=== PATIENT | female | born 1950 | race Caucasian/White ===

== ENCOUNTER 2020-11-11 06:00 | Outpatient (RCR) | payer MEDICARE, SELFPAY | END 2020-11-15 23:59 | disposition home or self-care (01) | LOC: TPT 06:00 | PROVIDERS: PCP Family Medicine; Referring Provider Family Medicine; Visit Provider Family Medicine | DX: M25.511 Pain in right shoulder (principal); M89.49 Other hypertrophic osteoarthropathy, multiple sites; M54.2 Cervicalgia; M25.512 Pain in left shoulder | CPT/HCPCS: 97110; 97162 ==

== ENCOUNTER 2020-11-16 06:00 | Outpatient (RCR) | payer MEDICARE, SELFPAY | END 2020-12-15 23:59 | disposition home or self-care (01) | LOC: TPT 06:00 | PROVIDERS: PCP Family Medicine; Referring Provider Family Medicine; Visit Provider Family Medicine | DX: M25.511 Pain in right shoulder (principal); M89.49 Other hypertrophic osteoarthropathy, multiple sites; M54.2 Cervicalgia; M25.512 Pain in left shoulder | CPT/HCPCS: 97110; 97140 ==

== ENCOUNTER 2020-12-16 06:00 | Outpatient (RCR) | payer MEDICARE, SELFPAY | END 2021-01-15 23:59 | disposition home or self-care (01) | LOC: TPT 06:00 | PROVIDERS: PCP Family Medicine; Referring Provider Family Medicine; Visit Provider Family Medicine | DX: M25.511 Pain in right shoulder (principal); M89.49 Other hypertrophic osteoarthropathy, multiple sites; M54.2 Cervicalgia; M25.512 Pain in left shoulder | CPT/HCPCS: 97110 ==

== ENCOUNTER 2022-11-15 23:11 | Inpatient (IN) | payer MEDICARE, SELFPAY ==
--- NOTE | 2022-11-15 23:12 | W.ED.SOB ---
HPI - SOB/Dyspnea General: Chief Complaint: Shortness of Breath/Dyspnea Stated Complaint: RESP DISTRESS Time Seen by Provider: 11/15/22 23:11 History of Present Illness: HPI Narrative: 72-year-old lady with history of COPD and chronic hypoxic respiratory failure presenting to the emergency department for shortness of breath and hypoxemic. She notes worsening symptoms over the past few days with increased weight gain. She does note cough which is mild. She denies other infectious symptoms. EMS found her wandering around her house not on oxygen and she was hypoxemia with central and peripheral cyanosis and confusion. She was placed on CPAP with some improvement in mental state. Albuterol treatment x2. Currently alert and oriented. No other specific changes in health, exacerbating, or alleviating factors identified. Onset (ago): day(s) Severity: severe Known history of: COPD Review of Systems General: Reports: 10 or more systems reviewed and unremarkable except in HPI and below PFSH ED PFSH: Medical History COPD (chronic obstructive pulmonary disease) Physical Exam Const: COMMON NORMALS: alert GENERAL APPEARANCE: cooperative, well developed and ill appearing HENMT: COMMON NORMALS: normocephalic and atraumatic HEAD & SCALP: normocephalic and atraumatic THROAT: posterior oropharynx normal Eye: COMMON NORMALS: conjunctivae normal CONJUNCTIVA: Yes conjunctivae normal SCLERA: sclerae normal Neck/C-Spine: COMMON NORMALS: supple GENERAL: Yes trachea midline Resp: EFFORT & INSPECTION: Yes tachypneic and Yes respiratory distress AUSCULTATION: rhonchi, wheezes and diminished lung sounds Cardio: COMMON NORMALS: regular rate and regular rhythm RATE: regular rate RHYTHM: regular rhythm GI: COMMON NORMALS: Soft to palpation PALPATION: Yes Soft to palpation and No Tenderness to palpation present (GI) Extremity: GENERAL: Yes normal exam except as noted and Yes edema Neuro: COMMON NORMALS: moves all extremities SENSORIUM/ORIENTATION: Yes alert and No Orientation impaired Psych: COMMON NORMALS: mental status grossly normal and Normal thought process present THOUGHT PROCESS: Normal thought process present Course Vital Signs: Vital signs: Vital Signs Temperature 98.3 F 11/17/22 08:00 Pulse Rate 100 11/17/22 15:40 Respiratory Rate 18 11/17/22 15:30 Blood Pressure 139/87 11/17/22 16:00 Pulse Oximetry 90 11/17/22 15:30 Oxygen Delivery Me thod High Flow Nasal C annula 11/17/22 15:30 Oxygen Flow Rate 8 11/17/22 15:30 Fraction of Inspir ed Oxygen 40 11/17/22 00:00 MDM - SOB/Dyspnea Medical Decision Making 72-year-old lady presenting with respiratory distress. Exam as above. EKG notable for sinus tachycardia. Right axis deviation. Normal intervals. No STEMI. Labs with no leukocytosis, normal hemoglobin and platelet count. Metabolic panel with evidence of hypercapnic respiratory failure. Hyponatremia and hypochloremia noted on metabolic panel with preserved renal function. Negative range 2-hour delta troponin proBNP is elevated. Viral panel pending. Chest x-ray with no lobar consolidation or pneumothorax. Patient treated with continued RT treatments, steroids, antibiotic for COPD exacerbation. The results of ED evaluation were discussed with the patient including plan for admission due to requirement for level of care not available if discharged to prevent significant worsening/deterioration. Patient agreeable with plan. Discussed with hospitalist service who was agreeable to admit patient. Medical Records I reviewed the patient's medical records. Lab Data I reviewed the patient's lab results. 11/17/22 03:57 11/17/22 03:57 Labs/Radiology: Radiology Impressions Chest X-Ray 11/15/22 23:18 IMPRESSION: 1. Emphysematous changes. 2. Trace bilateral pleural effusions. Chest CTA 11/16/22 00:32 IMPRESSION: 1. Lingular lobe pulmonary artery demonstrates decreased enhancement with contrast seen distally, series 11, image 201, finding may be artifactual in nature, a nonocclusive pulmonary embolus is also a consideration but felt less likely. Negative for right heart strain given on RV to LV ratio of approximately 0.9. 2. Small bilateral effusions. 3. Bilateral dependent atelectasis versus infiltrate. 4. Cardiomegaly. 5. Coronary artery atherosclerotic calcifications. 6. Emphysematous changes. 7. Bilateral dependent atelectasis versus infiltrate. COMMENTS: In the absence of a history or active diagnosis of lung cancer, it is recommended that this patient with emphysema be evaluated for enrollment in a low dose CT lung cancer screening program. Laboratory Results WBC 6.9 10^3/uL (4.0-10.0) 11/15/22 23:15 RBC 4.97 10^6/uL (4.1-5.3) 11/15/22 23:15 Hgb 14.5 g/dL (11.5-15.3) 11/15/22 23:15 Hct 47.0 % (37.0-47.0) 11/15/22 23:15 MCV 94.6 fl (81-99) 11/15/22 23:15 MCH 29.2 pg (28.0-34.0) 11/15/22 23:15 MCHC 30.9 g/dL (30.0-36.0) 11/15/22 23:15 RDW 16.1 % (12.1-15.1) H 11/15/22 23:15 Plt Count 174 10^3/cmm (130-400) 11/15/22 23:15 MPV 9.9 fL (7.4-10.4) 11/15/22 23:15 Neut % (Auto) 76.1 % 11/15/22 23:15 Lymph % (Auto) 6.3 % 11/15/22 23:15 [place] % (Auto) 17.2 % 11/15/22 23:15 Eos % (Auto) 0.0 % 11/15/22 23:15 Baso % (Auto) 0.3 % 11/15/22 23:15 Neut # (Auto) 5.22 10^3/uL (1.8-7.7) 11/15/22 23:15 Lymph # (Auto) 0.4 10^3/uL (0.8-4.8) L 11/15/22 23:15 [place] # (Auto) 1.2 10^3/uL (0.2-0.9) H 11/15/22 23:15 Eos # (Auto) 0.0 10^3/uL (0.0-0.8) 11/15/22 23:15 Baso # (Auto) 0.0 10^3/uL (0.0-0.1) 11/15/22 23:15 Nucleated RBC % (auto) 0 % 11/15/22 23:15 Nucleated RBCs # 0.0 /100WBC 11/15/22 23:15 D-Dimer 2.64 ug/mIFEU (0-0.59) H 11/15/22 23:15 Specimen Type Arterial 11/15/22 23:18 Sample Site Radial, right 11/15/22 23:18 ABG pH 7.20 (7.35-7.45) L 11/15/22 23:18 ABG pCO2 89.8 mmHg (35-45) H* 11/15/22 23:18 ABG pO2 49.2 mmHg (80.0-100.0) L 11/15/22 23:18 ABG HCO3 35.0 mmol/L (22-26) H 11/15/22 23:18 ABG Base Excess 3.5 mmol/L (-2.0-2.0) H 11/15/22 23:18 Pedro Test Pos 11/15/22 23:18 Hematocrit 45.4 % (37-47) 11/15/22 23:18 Hgb O2 Saturation 74.6 % (95-100) L 11/15/22 23:18 Carboxyhemoglobin 4.6 %THgb (0.4-20.1) 11/15/22 23:18 Methemoglobin 0.2 % (0.4-1.5) L 11/15/22 23:18 Total Hemoglobin 14.8 g/dL (12-16) 11/15/22 23:18 O2 Delivery Device Nc 11/15/22 23:18 O2 Liters/Min 5.0 % 11/15/22 23:18 Retail Equipment Associate ID [email or web address] 11/15/22 23:18 Sodium 128 mmol/L (136-145) L 11/15/22 23:15 Potassium 5.1 mmol/L (3.5-5.1) 11/15/22 23:15 Chloride 86 mmol/L (98-107) L 11/15/22 23:15 Carbon Dioxide 32 mmol/L (22-29) H 11/15/22 23:15 Anion Gap 15.1 (5-19) 11/15/22 23:15 BUN 29 mg/dL (8-23) H 11/15/22 23:15 Creatinine 0.5 mg/dL (0.5-0.9) 11/15/22 23:15 GFR Calculation Not Reportable 11/15/22 23:15 Glucose 188 mg/dL (65-115) H 11/15/22 23:15 POC Glucose 152 mg/dL (70-110) H 11/15/22 23:54 Calculated Osmolality 277 mOsm/kg (285-295) L 11/15/22 23:15 Lactic Acid 1.4 mmol/L (0.5-2.2) 11/15/22 23:34 Calcium 8.9 mg/dL (8.5-10.5) 11/15/22 23:15 Total Bilirubin 0.3 mg/dL (0.15-1.2) 11/15/22 23:15 AST 32 U/L (0-32) 11/15/22 23:15 ALT 41 U/L (0-33) H 11/15/22 23:15 Alkaline Phosphatase 116 U/L (35-105) H 11/15/22 23:15 Troponin T Baseline 17 ng/L (0-10) H 11/15/22 23:15 NT-Pro-B Natriuret Pep 3935 pg/mL (0-125) H 11/15/22 23:15 Total Protein 6.5 g/dL (6.6-8.7) L 11/15/22 23:15 Albumin 3.4 g/dL (3.5-5.2) L 11/15/22 23:15 Globulin 3.1 g/dL (1.3-4.6) 11/15/22 23:15 Nasal Influ A H1 2008 PCR Not detected (NOT DETECT) 11/15/22 23:50 Adenovirus (PCR) Not detected (NOT DETECT) 11/15/22 23:50 C. pneumoniae DNA (PCR) Not detected (NOT DETECT) 11/15/22 23:50 Coronavirus 229E (PCR) Not detected (NOT DETECT) 11/15/22 23:50 Human Metapneumovir PCR Not detected (NOT DETECT) 11/15/22 23:50 Influenza A (H1) PCR Not detected (NOT DETECT) 11/15/22 23:50 Influenza A (H3) PCR Not detected (NOT DETECT) 11/15/22 23:50 Influenza Type A (PCR) Not detected (NOT DETECT) 11/15/22 23:50 Influenza Type B (PCR) Not detected (NOT DETECT) 11/15/22 23:50 M. pneumoniae (PCR) Not detected (NOT DETECT) 11/15/22 23:50 Parainfluenza 1 (PCR) Not detected (NOT DETECT) 11/15/22 23:50 Parainfluenza 2 (PCR) Not detected (NOT DETECT) 11/15/22 23:50 Parainfluenza 3 (PCR) Not detected (NOT DETECT) 11/15/22 23:50 Parainfluenza 4 (PCR) Not detected (NOT DETECT) 11/15/22 23:50 RSV Type A (PCR) Not detected (NOT DETECT) 11/15/22 23:50 RSV Type B (PCR) Not detected (NOT DETECT) 11/15/22 23:50 Entero/Rhino (PCR) Not detected (NOT DETECT) 11/15/22 23:50 SARS-CoV-2 (PCR) Not detected (NOT DETECT) 11/15/22 23:50 Critical Care Time Critical Care Time: Critical Care Time: Yes Total Critical Care Time: 45 Attestation: Due to a high probability of clinically significant, possibly life threatening deterioration, the patient required my highest level of attention and preparedness to intervene emergently and I personally spent this critical care time directly and personally managing the patient. This critical care time included obtaining a history; examining the patient; pulse oximetry; ordering and review of laboratory and imaging studies; arranging urgent treatment with development of a management plan; evaluation of patient's response to treatment; frequent reassessment; and, discussions with other providers as applicable. It was exclusive of separately billable procedures. Primary system involved is respiratory Discharge Plan Discharge Patient Disposition: Admitted As Inpatient Admit Provider: Tasha Gamboa Clinical Impression: Acute exacerbation of chronic obstructive airways disease, Respiratory failure with hypoxia and hypercapnia Condition: Serious Coding Level of Care Code ED [employer] Supervisor for Mikey Quinteros
[2022-11-15 23:13] VITALS: BMI 18.2
--- NOTE | 2022-11-15 23:16 | ECG_ITS ---
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 Measurements Intervals [place] Rate: 100 P: 84 SD: 166 QRS: 102 QRSD: 83 T: 69 QT: 305 QTc: 394 Interpretive Statements SINUS TACHYCARDIA WITH OCCASIONAL SUPRAVENTRICULAR PREMATURE COMPLEXES RIGHT AXIS DEVIATION [QRS AXIS > 100] MINIMAL ST DEPRESSION [0.025+ mV ST DEPRESSION] No previous ECG available for comparison Electronically Signed On 11-16-2022 17:37:25 CDT by Mode Ross M.D. [email or web address] health centerProteocyte Diagnosticsselect medical specialty hospital [facility] [email or web address].Relayr/store/NU/[id number] f
[2022-11-15 23:17] VITALS: BP 119/88; PULSE 95; RESP 25; TEMP 36.6; O2SAT 94
--- NOTE | 2022-11-15 23:18 | XRR_ITS ---
PROCEDURE INFORMATION: Exam: XR Chest Exam date and time: 11/15/2022 11:23 PM Age: 72 years old Clinical indication: Other: Resp. Distress; Additional info: Resp distress TECHNIQUE: Imaging protocol: Radiologic exam of the chest. Views: 1 view. COMPARISON: No relevant prior studies available. FINDINGS: Lungs: Emphysematous changes. Pleural spaces: Trace bilateral pleural effusions. Heart/Mediastinum: Unremarkable. No cardiomegaly. Bones/joints: Unremarkable. XR/XR chest 1V portable [id number] IMPRESSION: 1. Emphysematous changes. 2. Trace bilateral pleural effusions.
[2022-11-15 23:28] LABS: Basophils % 0.3 %; Hemoglobin 14.5 g/dL (11.5-15.3); Lymphocytes # 0.4 10^3/uL (0.8-4.8); Lymphocytes % 6.3 %; Mean Corpuscular HGB Conc 30.9 g/dL (30.0-36.0); Mean Corpuscular Hemoglobin 29.2 pg (28.0-34.0); Mean Corpuscular Volume 94.6 fl (81-99); Mean Platelet Volume 9.9 fL (7.4-10.4); Monocytes # 1.2 10^3/uL (0.2-0.9); Monocytes % 17.2 %; Neutrophils # 5.22 10^3/uL (1.8-7.7); Neutrophils % 76.1 %; Nucleated Red Blood Cells % 0 %; Platelet Count 174 10^3/cmm (130-400); Red Blood Count 4.97 10^6/uL (4.1-5.3); Red Cell Distribution Width 16.1 % (12.1-15.1); White Blood Count 6.9 10^3/uL (4.0-10.0)
[2022-11-15 23:39] LABS: Arterial Blood Gas Hematocrit 45.4 % (37-47); Base Excess ABG 3.5 mmol/L (-2.0-2.0); Blood Gas Allen Test Pos; Blood Gas Sample Site Radial, right; Blood Gas Sample Type Arterial; Carboxyhemoglobin 4.6 %THgb (0.4-20.1); HGB O2 Sat 74.6 % (95-100); Methemoglobin 0.2 % (0.4-1.5); Oxygen Device NC; PO2 ABG 49.2 mmHg (80.0-100.0); Total Hemoglobin 14.8 g/dL (12-16)
[2022-11-15 23:40] LABS: ABG PCO2 89.8 mmHg (35-45)
[2022-11-15] MEDS: ipratropium-albuterol 3 mL Neb INHALATION (23:40)
[2022-11-15 23:43] LABS: Troponin(5th) Baseline 17 ng/L (0-10)
[2022-11-15] MEDS: dexamethasone 10 mg/mL INJ IVP (23:44)
[2022-11-15 23:48] VITALS: BP 134/108; PULSE 94; RESP 16; O2SAT 99
[2022-11-15 23:51] VITALS: PULSE 100; RESP 17; RESP 20; O2SAT 98; O2SAT 99
[2022-11-15 23:52] LABS: Alanine Aminotransferase 41 U/L (0-33); Albumin Level 3.4 g/dL (3.5-5.2); Alkaline Phosphatase 116 U/L (35-105); Anion Gap 15.1 (5-19); Aspartate Amino Transferase 32 U/L (0-32); Blood Urea Nitrogen 29 mg/dL (8-23); Calcium 8.9 mg/dL (8.5-10.5); Carbon Dioxide 32 mmol/L (22-29); Chloride 86 mmol/L (98-107); Globulin 3.1 g/dL (1.3-4.6); Glucose 188 mg/dL (65-115); NT Pro B Type Natriuretic Pept 3935 pg/mL (0-125); Osmolality Calculated 277 mOsm/kg (285-295); Potassium 5.1 mmol/L (3.5-5.1); Sodium 128 mmol/L (136-145); Total Bilirubin 0.3 mg/dL (0.15-1.2); Total Protein 6.5 g/dL (6.6-8.7)
[2022-11-15 23:55] LABS: Lactic Sepsis W/Reflex 1.4 mmol/L (0.5-2.2)
[2022-11-15 23:56] LABS: Glucose Point of Care 152 mg/dL (70-110)
[2022-11-16] VITALS (71 sets, daily range): BP systolic 91–137; BP diastolic 62–111; PULSE 88–122; RESP 14–42; TEMP 36.2–36.8; O2SAT 74–99; BMI 19.2
[2022-11-16] MEDS: doxycycline 100 MG in sodium chloride 0.9% (plus) 100 ML IV (00:28)
[2022-11-16 00:31] LABS: D Dimer 2.64 ug/mIFEU (0-0.59)
--- NOTE | 2022-11-16 00:32 | CTR_ITS ---
PROCEDURE INFORMATION: Exam: CTA Chest With Contrast Exam date and time: 11/16/2022 12:51 AM Age: 72 years old Clinical indication: Shortness of breath; Patient HX: SOB with hypoxia and tachycardia. On bipap. Wearing external heart monitor. ; Additional info: SOB, resp distress TECHNIQUE: Imaging protocol: Computed tomographic angiography of the chest with contrast. Exam focused on the arteries. 3D rendering (Not supervised by radiologist): MIP and/or 3D reconstructed images were created by the technologist. Radiation optimization: All CT scans at this facility use at least one of these dose optimization techniques: automated exposure control; mA and/or kV adjustment per patient size (includes targeted exams where dose is matched to clinical indication); or iterative reconstruction. Contrast material: OMNI 350; Contrast volume: 60 ml; Contrast route: INTRAVENOUS (IV); REPORTING DATA: Count of CT and Cardiac NM exams in prior 12 months: This patient has received 0 known CTs and 0 known cardiac nuclear medicine studies in the 12 months prior to the current study. COMPARISON: CR (CHEST, ) 11/15/2022 11:23 PM RADIATION DOSE METRICS: Total DLP (mGy-cm): 194.1 FINDINGS: Pulmonary arteries: See Lungs finding. Aorta: Unremarkable. No aortic aneurysm. No aortic dissection. Lungs: Lingular lobe pulmonary artery demonstrates decreased enhancement with contrast seen distally, series 11, image 201, finding may be artifactual in nature, a nonocclusive pulmonary embolus is also a consideration but felt less likely. Negative for right heart strain given on RV to LV ratio of approximately 0.9. Bilateral dependent atelectasis versus infiltrate. Emphysematous changes. Bilateral dependent atelectasis versus infiltrate. Pleural spaces: Unremarkable. No pneumothorax. No pleural effusion. Heart: Cardiomegaly. Coronary arteries: Coronary artery atherosclerotic calcifications. Lymph nodes: Unremarkable. No enlarged lymph nodes. Bones/joints: Unremarkable. No acute fracture. Soft tissues: Unremarkable. Other findings: Small bilateral effusions. CT/CT angio chest PE protcl [id number] IMPRESSION: 1. Lingular lobe pulmonary artery demonstrates decreased enhancement with contrast seen distally, series 11, image 201, finding may be artifactual in nature, a nonocclusive pulmonary embolus is also a consideration but felt less likely. Negative for right heart strain given on RV to LV ratio of approximately 0.9. 2. Small bilateral effusions. 3. Bilateral dependent atelectasis versus infiltrate. 4. Cardiomegaly. 5. Coronary artery atherosclerotic calcifications. 6. Emphysematous changes. 7. Bilateral dependent atelectasis versus infiltrate. COMMENTS: In the absence of a history or active diagnosis of lung cancer, it is recommended that this patient with emphysema be evaluated for enrollment in a low dose CT lung cancer screening program.
[2022-11-16] MEDS: iohexol 350 mg/mL 500 mL Btl (per mL) IV (01:22)
[2022-11-16 01:32] LABS: Adenovirus Not Detected (NOT DETECT); Chlamydia Pneumoniae Not Detected (NOT DETECT); Coronavirus 229E,HKU1,NL63,OC4 Not Detected (NOT DETECT); Human Metapneumovirus Not Detected (NOT DETECT); Human Rhinovirus/Enterovirus Not Detected (NOT DETECT); Influenza A Not Detected (NOT DETECT); Influenza A H1 Not Detected (NOT DETECT); Influenza A H1-2009 Not Detected (NOT DETECT); Influenza A H3 Not Detected (NOT DETECT); Influenza B Not Detected (NOT DETECT); Mycoplasma Pneumoniae Not Detected (NOT DETECT); Parainfluenza Virus Type 1 Not Detected (NOT DETECT); Parainfluenza Virus Type 2 Not Detected (NOT DETECT); Parainfluenza Virus Type 3 Not Detected (NOT DETECT); Parainfluenza Virus Type 4 Not Detected (NOT DETECT); Respiratory Syncytial Virus A Not Detected (NOT DETECT); Respiratory Syncytial Virus B Not Detected (NOT DETECT); SARS-COV-2 Not Detected (NOT DETECT)
--- NOTE | 2022-11-16 01:38 | ECG_ITS ---
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 Measurements Intervals [place] Rate: 92 P: 86 WI: 170 QRS: 102 QRSD: 85 T: 73 QT: 323 QTc: 400 Interpretive Statements SINUS RHYTHM POSSIBLE RIGHT VENTRICULAR HYPERTROPHY [SOME/ALL OF: PROMINENT R IN V1, LATE TRANSITION, RAD, NICHO, SSS] Compared to ECG 11/15/2022 23:16:48 Sinus tachycardia no longer present Right-axis deviation no longer present ST (T wave) deviation no longer present Electronically Signed On 11-16-2022 17:38:53 CDT by Mode Ross M.D. [id number]
[2022-11-16 02:17] LABS: Troponin 5 2HR 14.88 ng/L (0-10)
[2022-11-16 02:19] LABS: Troponin 5 2HR Delta -2.12 ABS# (0-10)
--- NOTE | 2022-11-16 02:54 | USCV_ITS ---
Alondra Melgar Age: 72 Gender: F : 1950 Exam Date: 11/16/2022 03:38 Ordering Phys: Tasha Gamboa MD Technologist: SURYA [place] [facility] [place]: COPD, hypoxia 92% on BIPAP in ICU-5. evaluate for right heart strain. BP: 110 / 70 HR: 100 Rhythm: Sinus Technical Quality: Adequate MEASUREMENTS (Male / Female) Normal Values 2D ECHO LV Diastolic Diameter PLAX 3.4 cm 4.2 - 5.9 / 3.9 - 5.3 cm LV Systolic Diameter PLAX 2.4 cm IVS Diastolic Thickness 1.3 cm 0.6 - 1.0 / 0.6 - 0.9 cm IVS Systolic Thickness 1.6 cm LVPW Diastolic Thickness 0.9 cm 0.6 - 1.0 / 0.6 - 0.9 cm LVPW Systolic Thickness 1.7 cm LVOT Diameter 1.8 cm LV Ejection Fraction 2D Teich 58.8 % LV Ejection Fraction MOD 2C 53.4 % LV Ejection Fraction 2C AL 54.1 % LA Diameter 2.2 cm LA Width 2.9 cm LA Height 4.5 cm RA Width 3.9 cm RA Height 4.7 cm Aorta at Sinotubular Diameter 2.6 cm IVC Diameter 3.1 cm M-MODE Aortic Annulus Diameter 2.5 cm LA Ao Ratio MM 0.8 MV E Point Septal Separation 0.5 cm DOPPLER AV Peak Velocity 127.0 cm/s LVOT Peak Velocity 83.0 cm/s AV Area Cont Eq vti 1.8 cm squared AV Area Cont Eq pk 1.8 cm squared MV Area PHT 3.1 cm squared Mitral E to A Ratio 1.7 MV E' Velocity 92.0 cm/s TR Peak Velocity 293.3 cm/s TR Peak Gradient 34.4 mmHg TV Peak E Velocity 43.0 cm/s Right Atrial Pressure 5.0 mmHg Pulmonary Artery Systolic Pressu 39.4 mmHg PV Peak Velocity 94.0 cm/s RV Acceleration Time 0.1 s RV Ejection Time 0.3 s RV AcT/ET 0.3 FINDINGS Left Ventricle Left ventricle is normal in size. LV systolic function is normal with EF of 55 to 60%. No regional wall motion abnormalities are seen. Right Ventricle Right ventricle is mildly dilated Right Atrium Normal in size Left Atrium Normal in size Mitral Valve Structurally normal mitral valve. No significant stenosis or regurgitation. Aortic Valve Structurally normal aortic valve. No significant stenosis or regurgitation. Tricuspid Valve Mild tricuspid regurgitation. RVSP is 45-50mmHg. This is consistent with moderate pulmonary hypertension. Pulmonic Valve Not well-visualized. Trace pulmonic regurgitation Pericardium Normal Aorta Normal in size IVC Dilated. CONCLUSIONS LV systolic function is normal with EF 55 to 60%. RV is mildly dilated. Mild tricuspid regurgitation. Moderate pulmonary hypertension Trace pulmonic regurgitation IVC is dilated No comparison studies are available Mode Ross MD (Electronically Signed) Final Date: 16 November 2022 18:28 S
--- NOTE | 2022-11-16 03:01 | P.HP_ITS ---
Providers/Chief Complaint Admitting Physician: Tasha Gamboa MD Primary Care Provider: Bailey Torre, Chief Complaint: RESP DISTRESS History of Present Illness Alondra Melgar is a 72 year old female with a past medical history of COPD, typically on home oxygen presenting with worsening shortness of breath. She was found by EMS to be saturating 50% on room air, was confused when first picked up by EMS. Patient is not able to give a full history given that she is currently on a BiPAP and dyspneic. However at the time of assessment she is alert awake oriented and able to answer all questions that are asked of her. She denies any recent fever chills. Complains of increasing cough expectoration and dyspnea over the last 4 to 5 days. Review of Systems General: Reports: 10 or more systems reviewed and unremarkable except in HPI and below Const: Denies: fever(s), chills or body aches Eyes: Denies: change in vision, blurry vision or photophobia ENMT: Reports: hoarseness; Denies: throat pain, enlarged tonsils, odynophagia or nasal congestion Card: Denies: chest pain, palpitations, irregular heart rhythm, edema, swelling of feet/ankles, lightheadedness, pre-syncope, dyspnea on exertion or orthopnea Resp: Denies: dyspnea, productive cough, non-productive cough, wheezing, stridor, pain on inspiration, change in phlegm color, hemoptysis or chest congestion GI: Denies: abdominal pain, nausea, vomiting, hematemesis, coffee ground emesis, dysphagia, heartburn, diarrhea, constipation, GI cramping, change in stool character, hematochezia or melena : Denies: flank pain, difficulty voiding, dysuria, urinary frequency, urinary urgency, urinary hesitancy or hematuria Musc: Denies: neck pain, back pain, extremity pain, joint swelling, joint warmth or deformity Neuro: Denies: headache(s), numbness in extremities, weakness in extremities, sensory changes, difficulty walking, frequent falls, dizziness, vertigo, behavioral changes, Slurred speech present or seizure-like activity Psych: Denies: anxiety, depression, suicidal ideation or homicidal ideation Endo: Denies: polyuria, polydipsia, tired all the time, cold intolerance or hot flashes Jose/Lymph: Denies: easy bruising or easy bleeding Medications/Allergies Allergies Allergy/AdvReac Type Severity Reaction Status Date / Time No Known Allergies Allergy Verified 11/16/22 00:29 PFSH Acute PFSH: Medical History COPD (chronic obstructive pulmonary disease) Vitals/I&O/Wt Last Vital Signs Temp 97.5 F L 11/16/22 01:15 Pulse 91 11/16/22 02:45 Resp 17 11/16/22 02:45 BP 110/70 11/16/22 02:45 Pulse Ox 94 11/16/22 02:45 O2 Del Method BiPAP 11/16/22 02:00 FiO2 40 11/16/22 02:00 11/15/22 11/15/22 11/16/22 14:59 22:59 06:59 Intake Total 100 / 100 Balance 100 / 100 Weight last 48 hrs Weight 53.977 kg Weight 51.256 kg Physical Exam Narrative: General: alert oriented x3, tachypneic, currently on a BiPAP HEENT: PERRLA, pupils bilaterally equal and reactive, pallors not present Chest: diffuse wheezing to auscultation bilaterally CVS: S1-S2 regular, no murmurs, no tachycardia, no gallops, no rubs Abdomen: Soft, nontender, no organomegaly, bowel sounds present Neuro: No focal deficits, no facial deformity, AO x3, power 5/5 in all limbs Data 11/15/22 23:15 11/16/22 01:47 Micro: Microbiology 11/15/22 23:34 Blood Culture - Preliminary Blood SPECIMEN COLLECTED 11/15/22 23:30 Blood Culture - Preliminary Blood SPECIMEN COLLECTED Other data: Radiology Impressions Chest X-Ray 11/15/22 23:18 IMPRESSION: 1. Emphysematous changes. 2. Trace bilateral pleural effusions. Chest CTA 11/16/22 00:32 IMPRESSION: 1. Lingular lobe pulmonary artery demonstrates decreased enhancement with contrast seen distally, series 11, image 201, finding may be artifactual in nature, a nonocclusive pulmonary embolus is also a consideration but felt less likely. Negative for right heart strain given on RV to LV ratio of approximately 0.9. 2. Small bilateral effusions. 3. Bilateral dependent atelectasis versus infiltrate. 4. Cardiomegaly. 5. Coronary artery atherosclerotic calcifications. 6. Emphysematous changes. 7. Bilateral dependent atelectasis versus infiltrate. COMMENTS: In the absence of a history or active diagnosis of lung cancer, it is recommended that this patient with emphysema be evaluated for enrollment in a low dose CT lung cancer screening program. Laboratory Results WBC 6.9 10^3/uL (4.0-10.0) 11/15/22 23:15 RBC 4.97 10^6/uL (4.1-5.3) 11/15/22 23:15 Hgb 14.5 g/dL (11.5-15.3) 11/15/22 23:15 Hct 47.0 % (37.0-47.0) 11/15/22 23:15 MCV 94.6 fl (81-99) 11/15/22 23:15 MCH 29.2 pg (28.0-34.0) 11/15/22 23:15 MCHC 30.9 g/dL (30.0-36.0) 11/15/22 23:15 RDW 16.1 % (12.1-15.1) H 11/15/22 23:15 Plt Count 174 10^3/cmm (130-400) 11/15/22 23:15 MPV 9.9 fL (7.4-10.4) 11/15/22 23:15 Neut % (Auto) 76.1 % 11/15/22 23:15 Lymph % (Auto) 6.3 % 11/15/22 23:15 Mcnairy % (Auto) 17.2 % 11/15/22 23:15 Eos % (Auto) 0.0 % 11/15/22 23:15 Baso % (Auto) 0.3 % 11/15/22 23:15 Neut # (Auto) 5.22 10^3/uL (1.8-7.7) 11/15/22 23:15 Lymph # (Auto) 0.4 10^3/uL (0.8-4.8) L 11/15/22 23:15 Mcnairy # (Auto) 1.2 10^3/uL (0.2-0.9) H 11/15/22 23:15 Eos # (Auto) 0.0 10^3/uL (0.0-0.8) 11/15/22 23:15 Baso # (Auto) 0.0 10^3/uL (0.0-0.1) 11/15/22 23:15 Nucleated RBC % (auto) 0 % 11/15/22 23:15 Nucleated RBCs # 0.0 /100WBC 11/15/22 23:15 D-Dimer 2.64 ug/mIFEU (0-0.59) H 11/15/22 23:15 Specimen Type Arterial 11/16/22 05:47 Sample Site Radial, right 11/16/22 05:47 ABG pH 7.19 (7.35-7.45) L 11/16/22 05:47 ABG pCO2 95.2 mmHg (35-45) H* 11/16/22 05:47 ABG pO2 70.3 mmHg (80.0-100.0) L 11/16/22 05:47 ABG HCO3 36.5 mmol/L (22-26) H 11/16/22 05:47 ABG Base Excess 4.6 mmol/L (-2.0-2.0) H 11/16/22 05:47 Pedro Test Pos 11/16/22 05:47 Hematocrit 44.5 % (37-47) 11/16/22 05:47 Hgb O2 Saturation 74.6 % (95-100) L 11/15/22 23:18 Carboxyhemoglobin 4.6 %THgb (0.4-20.1) 11/15/22 23:18 Methemoglobin 0.2 % (0.4-1.5) L 11/15/22 23:18 Total Hemoglobin 14.8 g/dL (12-16) 11/15/22 23:18 O2 Delivery Device Bipap 11/16/22 05:47 O2 Liters/Min 5.0 % 11/15/22 23:18 FiO2 40.0 % 11/16/22 05:47 [employer] ID Quentin 11/16/22 05:47 Sodium 129 mmol/L (136-145) L 11/16/22 01:47 Potassium 5.4 mmol/L (3.5-5.1) H 11/16/22 01:47 Chloride 89 mmol/L (98-107) L 11/16/22 01:47 Carbon Dioxide 33 mmol/L (22-29) H 11/16/22 01:47 Anion Gap 12.4 (5-19) 11/16/22 01:47 BUN 30 mg/dL (8-23) H 11/16/22 01:47 Creatinine 0.4 mg/dL (0.5-0.9) L 11/16/22 01:47 GFR Calculation Not Reportable 11/16/22 01:47 Glucose 132 mg/dL (65-115) H 11/16/22 01:47 POC Glucose 152 mg/dL (70-110) H 11/15/22 23:54 Calculated Osmolality 276 mOsm/kg (285-295) L 11/16/22 01:47 Lactic Acid 1.4 mmol/L (0.5-2.2) 11/15/22 23:34 Calcium 8.6 mg/dL (8.5-10.5) 11/16/22 01:47 Total Bilirubin 0.3 mg/dL (0.15-1.2) 11/16/22 01:47 AST 29 U/L (0-32) 11/16/22 01:47 ALT 38 U/L (0-33) H 11/16/22 01:47 Alkaline Phosphatase 111 U/L (35-105) H 11/16/22 01:47 Troponin T Baseline 17 ng/L (0-10) H 11/15/22 23:15 Troponin T 120 Minute 14.88 ng/L (0-10) H 11/16/22 01:47 Delta Troponin T -2.12 ABS# (0-10) L 11/16/22 01:47 Troponin T Hi Sens 6Hr 13.12 ng/L (0-10) H 11/16/22 05:00 Troponin T Hi Sens 6Hr Delta -3.88 ng/L (0-12) L 11/16/22 05:00 NT-Pro-B Natriuret Pep 3935 pg/mL (0-125) H 11/15/22 23:15 Total Protein 6.2 g/dL (6.6-8.7) L 11/16/22 01:47 Albumin 3.3 g/dL (3.5-5.2) L 11/16/22 01:47 Globulin 2.9 g/dL (1.3-4.6) 11/16/22 01:47 Procalcitonin 0.36 ng/mL (0-0.5) 11/16/22 01:47 Nasal Influ A H1 2009 PCR Not detected (NOT DETECT) 11/15/22 23:50 Adenovirus (PCR) Not detected (NOT DETECT) 11/15/22 23:50 C. pneumoniae DNA (PCR) Not detected (NOT DETECT) 11/15/22 23:50 Coronavirus 229E (PCR) Not detected (NOT DETECT) 11/15/22 23:50 Human Metapneumovir PCR Not detected (NOT DETECT) 11/15/22 23:50 Influenza A (H1) PCR Not detected (NOT DETECT) 11/15/22 23:50 Influenza A (H3) PCR Not detected (NOT DETECT) 11/15/22 23:50 Influenza Type A (PCR) Not detected (NOT DETECT) 11/15/22 23:50 Influenza Type B (PCR) Not detected (NOT DETECT) 11/15/22 23:50 M. pneumoniae (PCR) Not detected (NOT DETECT) 11/15/22 23:50 Parainfluenza 1 (PCR) Not detected (NOT DETECT) 11/15/22 23:50 Parainfluenza 2 (PCR) Not detected (NOT DETECT) 11/15/22 23:50 Parainfluenza 3 (PCR) Not detected (NOT DETECT) 11/15/22 23:50 Parainfluenza 4 (PCR) Not detected (NOT DETECT) 11/15/22 23:50 RSV Type A (PCR) Not detected (NOT DETECT) 11/15/22 23:50 RSV Type B (PCR) Not detected (NOT DETECT) 11/15/22 23:50 Entero/Rhino (PCR) Not detected (NOT DETECT) 11/15/22 23:50 SARS-CoV-2 (PCR) Not detected (NOT DETECT) 11/15/22 23:50 11/15/22 11/16/22 23:18 05:47 ABG pH 7.20 L 7.19 L ABG pCO2 89.8 H* 95.2 H* ABG pO2 49.2 L 70.3 L ABG HCO3 35.0 H 36.5 H allow ABG Base Excess 3.5 H 4.6 H A&P Assessment and plan (1) Acute exacerbation of chronic obstructive airways disease: (2) Respiratory failure with hypoxia and hypercapnia: (3) Pulmonary embolism: Plan 72-year-old lady with past medical history of COPD currently presenting with worsening dyspnea increased cough and expectoration over the past 4 to 5 days. ABG shows evidence of hypercapnic hypoxic respiratory failure. Patient is currently on a BiPAP. dexamethasone 6mg IVP daily duoneb q6h, budesonide q12h inhalation scheduled empiric levofloxacin 750 mg daily Repeat ABG at 4 AM CTA performed due to elevated D-dimer, lingular lobe pulmonary artery demonstrates decreased enhancement with contrast, findings thought to be artifact versus nonocclusive PE. Since PE cannot be conclusively excluded at this time, will start patient on anticoagulation with Lovenox 1 mg/kg every 12 hours. Check echocardiogram for signs of right heart strain Admit to ICU in view of hypoxic hypercapnic respiratory failure, currently needing BiPAP, high chance of clinical deterioration. CODE STATUS: DNR/DNI DVT prophylaxis: Lovenox will suffice Attestations Medical Necessity Statement*: > 2 midnight admission anticipated Coding Level of Care Code Critical Care >/= 30 minutes Diagnoses Acute exacerbation of chronic obstructive airways disease J44.1 Respiratory failure with hypoxia and hypercapnia J96.91; J96.92 Pulmonary embolism I26.99
[2022-11-16] MEDS: ipratropium-albuterol 3 mL Neb INHALATION ×4 (03:11→20:13)
[2022-11-16 03:18] LABS: Alanine Aminotransferase 38 U/L (0-33); Albumin Level 3.3 g/dL (3.5-5.2); Alkaline Phosphatase 111 U/L (35-105); Anion Gap 12.4 (5-19); Aspartate Amino Transferase 29 U/L (0-32); Blood Urea Nitrogen 30 mg/dL (8-23); Calcium 8.6 mg/dL (8.5-10.5); Carbon Dioxide 33 mmol/L (22-29); Chloride 89 mmol/L (98-107); Globulin 2.9 g/dL (1.3-4.6); Glucose 132 mg/dL (65-115); Osmolality Calculated 276 mOsm/kg (285-295); Potassium 5.4 mmol/L (3.5-5.1); Sodium 129 mmol/L (136-145); Total Bilirubin 0.3 mg/dL (0.15-1.2); Total Protein 6.2 g/dL (6.6-8.7)
[2022-11-16 03:25] LABS: Procalcitonin 0.36 ng/mL (0-0.5)
[2022-11-16] MEDS: enoxaparin 60 mg/0.6 mL Syringe 50 MG SUBCUT ×2 (04:00→14:21)
[2022-11-16] MEDS: dexamethasone 4 mg/mL INJ 6 MG IVP ×2 (04:00→21:09)
--- NOTE | 2022-11-16 05:19 | ECG_ITS ---
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 Measurements Intervals [place] Rate: 92 P: 83 MI: 178 QRS: 96 QRSD: 80 T: 70 QT: 325 QTc: 402 Interpretive Statements SINUS RHYTHM WITH SINUS ARRHYTHMIA RIGHT ATRIAL ENLARGEMENT [0.3mV P-WAVE] BORDERLINE RIGHT AXIS DEVIATION [QRS AXIS > 90] Compared to ECG 11/16/2022 01:38:45 No significant changes Electronically Signed On 11-16-2022 17:38:45 CDT by Mode Ross M.D. [id number]
[2022-11-16 05:27] LABS: Troponin 5 6HR 13.12 ng/L (0-10)
[2022-11-16 05:36] LABS: Troponin 5 6HR Delta -3.88 ng/L (0-12)
[2022-11-16 05:56] LABS: ABG PCO2 95.2 mmHg (35-45); ABG PH Result 7.19 (7.35-7.45); Arterial Blood Gas Hematocrit 44.5 % (37-47); Base Excess ABG 4.6 mmol/L (-2.0-2.0); Blood Gas Allen Test Pos; Blood Gas Operator Identificat JB; Blood Gas Sample Site Radial, right; Blood Gas Sample Type Arterial; HCO3 ABG 36.5 mmol/L (22-26); Oxygen Device BIPAP; PO2 ABG 70.3 mmHg (80.0-100.0)
--- NOTE | 2022-11-16 06:30 | PC.NURSE ---
ABG results received. Dr. Gamboa at bedside assessing patient. Patient alert and oriented, remaining on bipap. Request made for Dr. Gamboa to contact daughter for decision making regarding code status. Education provided regarding ABG, chronic COPD, and intubation. Patient verbalized understanding.
--- NOTE | 2022-11-16 07:09 | PC.NURSE ---
Dr. Gamboa notified of patient's cloudy, foul smelling urine output. Order received for a urinalysis.
[2022-11-16 07:17] LABS: Add Urine Microscopic? NO; Charge for UA Resulting for Rev
[2022-11-16 07:18] LABS: ABG PH Result 7.21 (7.35-7.45); Arterial Blood Gas Hematocrit 44.2 % (37-47); Base Excess ABG 4.9 mmol/L (-2.0-2.0); Blood Gas Allen Test Pos; Blood Gas Sample Type Arterial; Carboxyhemoglobin 3.9 %THgb (0.4-20.1); HCO3 ABG 36.3 mmol/L (22-26); HGB O2 Sat 91.3 % (95-100); Ionized Calcium Level - ABG 1.3 mmol/L (1.1-1.4); Methemoglobin 0.7 % (0.4-1.5); Oxygen Saturation ABG 95.8; PO2 ABG 83.6 mmHg (80.0-100.0); Potassium Level - ABG 5.3 mmol/L (3.5-5.0); Total Hemoglobin 14.4 g/dL (12-16)
[2022-11-16 07:19] LABS: Alveolar-Arterial Oxygen Gradi 12.2 mmHg (5-10); Blood Gas Operator Identificat MONRO; Blood Gas Sample Site Brachial, left; Oxygen Device BIPAP
[2022-11-16 07:20] LABS: ABG PCO2 90.6 mmHg (35-45)
[2022-11-16 07:27] LABS: Bilirubin Urine Neg (Negative); Blood Urine Neg (Negative); Glucose Urine UA Norm (Normal); Ketones Urine Negative (Negative); Leukocyte Esterase Urine Negative (Negative); Nitrate Urine Negative (Negative); Protein Urine 1+ (Negative); Urine Appearance Clear (CLEAR); Urine Color Yellow (Yellow); Urobilinogen Urine Norm (Negative); pH Urine 5 (5-7)
[2022-11-16] MEDS: budesonide 0.5 mg/2 mL Neb INHALATION ×2 (07:55→20:13)
[2022-11-16] MEDS: FUROsemide 10 mg/mL SDV 4mL 40 MG IVP (08:36)
[2022-11-16] MEDS: levoFLOXacin 750 mg Tablet PO (08:38)
[2022-11-16] MEDS: pantoprazole DR 40 mg Tablet PO (08:39)
--- NOTE | 2022-11-16 09:16 | PC.PHAR ---
PT UNABLE TO VERIFY ALL MEDS-PT STATES SHE TAKES LASIX PRN-[facility] STATES THE LASIX 20MG DAILY PRN AND FARXIGA 10MG DAILY CAME FROM A DR FROM [facility] GREG[place]IO HERNANDEZ STATES THE PT DIDNT GET THE FARXIGA STATES THE COPAY WAS $99.00-[facility] THE PT PICKED UP DILTIAZEM ER 120MG DAILY FILLED 10/21/22 30D/S NO REFILLS ALSO FROM A DR FROM [facility] [place]-
--- NOTE | 2022-11-16 10:00 | PC.SOCIAL ---
CM asked SDOH first two questions and patient provided answers, third question was asked and she states, I'm not answering these anymore! I want food! CM updated Nurse Angelika that patient was requesting food.
--- NOTE | 2022-11-16 20:50 | P.PN_ITS ---
Subjective Subjective: Still on BiPAP, but reports she is starting to breathe easier. Having productive cough. Later on requests to resume oral diet. Vitals/I&O/Wt Last Vital Signs Temp 98.3 F 11/16/22 20:00 Pulse 98 11/16/22 20:14 Resp 20 H 11/16/22 20:14 BP 123/80 11/16/22 20:00 Pulse Ox 94 11/16/22 20:14 O2 Del Method High Flow Nasal Cannula 11/16/22 20:14 O2 Flow Rate 10 11/16/22 20:14 FiO2 30 11/16/22 09:36 11/16/22 11/16/22 11/16/22 06:59 14:59 22:59 Intake Total 100 / 100 820 / 820 1080 / 1900 Output Total 150 / 150 1550 / 1550 Balance -50 / -50 -730 / -730 1080 / 350 Weight last 48 hrs Weight 53.977 kg Weight 53.977 kg Weight 51.256 kg Physical Exam Const: COMMON NORMALS: patient oriented x3 and alert GENERAL APPEARANCE: cooperative ORIENTATION/CONSCIOUSNESS: Yes awake HENMT: COMMON NORMALS: oropharynx normal Resp: AUSCULTATION: diminished lung sounds OTHER: Cough rhonchi. Cardio: COMMON NORMALS: regular rhythm, S1 normal heart sound present, S2 normal heart sound present and No murmurs present (Cardio) RHYTHM: regular rhythm HEART SOUNDS: S1 normal heart sound present and S2 normal heart sound present GI: COMMON NORMALS: Normal to inspection, nondistended, normoactive bowel sounds present, Soft to palpation and non-tender PALPATION: Yes Soft to palpation Extremity: COMMON NORMALS: no joint enlargement GENERAL: Yes edema (Trace) Neuro: COMMON NORMALS: patient oriented x3 and moves all extremities SENSORIUM/ORIENTATION: Yes alert Urinary Catheter Management: Wilburn Latex: Cath Placed During This Visit: yes Reason for Continuing Indwelling Catheter: Accurate Measurement of Urinary Output in Critically Ill Patients Urinary Catheter Date of Insertion: 11/16/22 Urinary Catheter Time of Insertion: 08:35 Data 11/15/22 23:15 11/16/22 01:47 Micro: Microbiology 11/15/22 23:34 Blood Culture - Preliminary Blood SPECIMEN COLLECTED 11/15/22 23:30 Blood Culture - Preliminary Blood SPECIMEN COLLECTED A&P Assessment and plan (1) Acute exacerbation of chronic obstructive airways disease: (2) Respiratory failure with hypoxia and hypercapnia: (3) Pulmonary embolism: Plan 72-year-old lady with past medical history of COPD currently presenting with worsening dyspnea increased cough and expectoration over the past 4 to 5 days. Respiratory failure with hypoxia and hypercapnia, severe COPD exacerbation. Noted ABG initially with worsening, consideration of intubation, but subsequently some improvement. 7.21/90.6/83.6. She remains alert, subjectively starting feel better. Continued on BiPAP support through the morning. Increase Decadron dose to 6 mg every 12 hours. Repeat ABG in the morning. Diet advanced to clear liquid for now pending further improvement in respiratory status is still at risk of requiring intubation. Continue Duoneb q6h, budesonide q12h inhalation scheduled empiric levofloxacin 750 mg daily Sputum culture if able to provide. Respiratory viral panel noted negative. Possible PE Continue anticoagulation TTE appreciated, normal EF, RV mildly dilated. Mild TVR. Moderate pulmonary hypertension. Trace pulmonic regurgitation. IVC dilated. Hyperkalemia: Low potassium diet. Follow-up chemistry. Mild hyponatremia: Follow-up chemistry. CODE STATUS: DNR/DNI DVT prophylaxis: Lovenox will suffice Attestations Medical Necessity Statement*: Continue admission for set of failure with hypoxia and hypercapnia, severe COPD exacerbation, PE. Coding Level of Care Code Critical Care >/= 30 minutes Critical care time (in minutes): 35 The high probability of a clinically significant, sudden or life threatening deterioration, as referenced in this documentation, required my full and direct attention, intervention and personal management. The critical care time shown is in addition to time spent performing any reported separately billable procedures and includes the following: [x] Data and vital sign review and interpretation [x ] Patient assessment, examination and intervention [x] Medication orders and management [x] Patient/Family updates as able [x] Care Coordination and Documentation. Diagnoses Acute exacerbation of chronic obstructive airways disease J44.1 Respiratory failure with hypoxia and hypercapnia J96.91; J96.92 Pulmonary embolism I26.99
[2022-11-16 21:55] LABS: Blood Urea Nitrogen 19 mg/dL (8-23); Calcium 8.3 mg/dL (8.5-10.5); Carbon Dioxide 36 mmol/L (22-29); Chloride 88 mmol/L (98-107); Glucose 98 mg/dL (65-115); Osmolality Calculated 268 mOsm/kg (285-295); Sodium 128 mmol/L (136-145)
--- NOTE | 2022-11-16 23:45 | PC.NURSE ---
Sleeping, O2 saturations decreased to 77%, unable to awaken patient. Notified RT. Placed on AVaps 40%, O2 saturation increased to 96%.
[2022-11-17] VITALS (16 sets, daily range): BP systolic 125–147; BP diastolic 81–100; PULSE 90–103; RESP 18–29; TEMP 36.1–36.8; O2SAT 90–98
[2022-11-17] MEDS: ipratropium-albuterol 3 mL Neb INHALATION ×3 (02:20→15:39)
[2022-11-17] MEDS: enoxaparin 60 mg/0.6 mL Syringe 50 MG SUBCUT (03:03)
[2022-11-17 04:14] LABS: Basophils % 0.3 %; Hematocrit 41.4 % (37.0-47.0); Hemoglobin 12.8 g/dL (11.5-15.3); Lymphocytes # 0.2 10^3/uL (0.8-4.8); Lymphocytes % 6.7 %; Mean Corpuscular HGB Conc 30.9 g/dL (30.0-36.0); Mean Corpuscular Hemoglobin 29.3 pg (28.0-34.0); Mean Corpuscular Volume 94.7 fl (81-99); Mean Platelet Volume 9.9 fL (7.4-10.4); Monocytes # 0.4 10^3/uL (0.2-0.9); Monocytes % 10.1 %; Neutrophils # 2.96 10^3/uL (1.8-7.7); Neutrophils % 82.6 %; Nucleated Red Blood Cells % 0 %; Platelet Count 152 10^3/cmm (130-400); Red Blood Count 4.37 10^6/uL (4.1-5.3); Red Cell Distribution Width 15.9 % (12.1-15.1); White Blood Count 3.6 10^3/uL (4.0-10.0)
[2022-11-17 04:41] LABS: Alanine Aminotransferase 31 U/L (0-33); Alkaline Phosphatase 91 U/L (35-105); Anion Gap 12.2 (5-19); Aspartate Amino Transferase 21 U/L (0-32); Blood Urea Nitrogen 17 mg/dL (8-23); Calcium 8.6 mg/dL (8.5-10.5); Carbon Dioxide 34 mmol/L (22-29); Chloride 86 mmol/L (98-107); Globulin 2.8 g/dL (1.3-4.6); Glucose 172 mg/dL (65-115); Osmolality Calculated 270 mOsm/kg (285-295); Potassium 5.2 mmol/L (3.5-5.1); Sodium 127 mmol/L (136-145); Total Bilirubin 0.3 mg/dL (0.15-1.2); Total Protein 5.8 g/dL (6.6-8.7)
[2022-11-17 04:56] LABS: ABG PH Result 7.33 (7.35-7.45); Arterial Blood Gas Hematocrit 40.9 % (37-47); Base Excess ABG 9.3 mmol/L (-2.0-2.0); Blood Gas Allen Test Pos; Blood Gas Operator Identificat JB; Blood Gas Sample Site Radial, right; Blood Gas Sample Type Arterial; HCO3 ABG 38.2 mmol/L (22-26); Oxygen Device NC; PO2 ABG 90.4 mmHg (80.0-100.0)
[2022-11-17 04:59] LABS: ABG PCO2 73.3 mmHg (35-45)
[2022-11-17] MEDS: budesonide 0.5 mg/2 mL Neb INHALATION (08:24)
[2022-11-17] MEDS: dexamethasone 4 mg/mL INJ 6 MG IVP (08:44)
[2022-11-17] MEDS: pantoprazole DR 40 mg Tablet PO (08:44)
[2022-11-17] MEDS: levoFLOXacin 750 mg Tablet PO (08:44)
[2022-11-17] MEDS: lanolin oint 7 gm 1 APPLIC TOPICAL (11:16)
--- NOTE | 2022-11-17 15:27 | PC.NURSE ---
Patient adamant about going home today. Multiple staff members including case management bedside to help convince patient to stay for medical reasons. Patient and patient family wants to leave. Notified Dr. Rceio notified, he also came bedside and educated patient on importance of staying. Patient still wishes to leave. AMA papers given to patient. All risks explained about leaving against medical advice including , patient continues to want to leave. AMA papers signed. All IVs removed. Dr. Castillo is writing prescriptions to help with medication compliance and management.
--- NOTE | 2022-11-17 15:56 | PC.NURSE ---
Another in depth conversation with patient and family about leaving AMA. Patient wishes to continue to leave. Dr. Barraza bedside as well, very concerned for patient. Patient and family denies any thoughts of Suicidal ideation. Patient just wants to be at home.
--- NOTE | 2022-11-17 16:44 | PC.NURSE ---
Patient wheeled to main exit at 1643 with family. Left AMA
--- NOTE | 2022-11-17 18:56 | PM.DCS ---
Discharge Providers Date of Admission: 11/16/22 00:09 Date of Discharge: November 17, 2022 Attending Provider at Admission: Tasha Gamboa MD Attending Provider at Discharge: Lance Brewer Primary Care Provider: Bailey Torre, Diagnoses at Discharge Discharge Diagnosis (1) Acute exacerbation of chronic obstructive airways disease: Status: Acute (2) Respiratory failure with hypoxia and hypercapnia: Status: Acute (3) Pulmonary embolism: Status: Acute Reason for Visit Reason for Visit: RESP DISTRESS Hospital Course Hospital Course 72-year-old lady with history of COPD, chronically on oxygen, prescribed 2 L, but states uses only about 4-5 L, was admitted after presenting with worsening shortness of breath, on assessment by EMS found to be saturating 50% on room air, at that time also confused, was started on BiPAP support, subsequently alert and oriented, reporting productive cough and dyspnea over preceding 4-[address] angiogram assessment in ER due to elevated D-dimer showed decreased enhancement of contrast in lingular lobe pulmonary artery, unclear whether artifact versus possible nonocclusive PE, as PE could not be excluded and with respiratory failure she was started on anticoagulation empirically. On echocardiogram right ventricle mildly dilated, mild cuspid regurgitation, moderate pulmonary hypertension, trace pulmonic regurgitation. IVC dilated. Additionally received treatment for COPD exacerbation, initially started on Levaquin, Decadron IV, breathing treatments with DuoNebs as well as inhaled budesonide. Required BiPAP support for respiratory failure with hypoxia and hypercapnia. Some persistence of hypercapnic respiratory acidosis initially, however, remained alert and coherent, steroid dose increased to 6 mg decadron twice daily IV, and gradually with improvement, although still with respiratory failure, early this morning ABG improved to 7.33/73.3. Weaned down to heated high flow and diet advanced as per her request. As per discussion with her continuation of treatment as she did still require AVAPS overnight, continue AVAPS support until either weaning off or arrangements could be made for NIV at discharge. However, later this morning initially requested transfer closer to home, preferring [place] or [place] or [place], however, no beds available at [facility] or [facility] unable to accept her. Coming back to discussed with her she decides to leave AGAINST MEDICAL ADVICE with her daughter having come here with her oxygen to pick her up, citing her needing to see her family. Her had recently passed. She has been grieving but denies chacha thoughts of self harm or suicidal ideation as does her daughter. Discussed with them she cannot safely discharge at this time, they understand that she is at risk of imminent decompensation without continued treatment as she is also requiring intermittent NIV support, with significant respiratory failure, at risk of decompensation of respiratory failure and either respiratory distress or advancement of hypercapnia unbeknown to her or family with potentially severe disabling and/or life-threatening consequences which she is able to state. Her daughter is present during discussions and confirms that she also understands these real risks that she may decompensate before even making at home or may become hypercapnic, and suffer severe complications unnoticed while asleep. They understand that she truly needs continued hospitalization until she improves further and that this discharge is premature and last minute. They understand that arranging for NIV is not a quick process and she currently needs one for intermittent support to survive. They understand that medications prescribed to her discharge are not a substitute for treatment in the hospital settings which she continues to require. She is encouraged to either return here or seek treatment at closest available facility. We offered again to continue attempts to transfer her hospital to hospital in controlled settings in the meantime with continued treatment here until we find a bed either at another facility or a bed opens at one of the facilities she desires, or if she recovers sooner than arranging a ride home for her at that point, however, considering these options they decline. Physical Exam Const: COMMON NORMALS: patient oriented x3 and alert GENERAL APPEARANCE: cooperative ORIENTATION/CONSCIOUSNESS: Yes awake HENMT: COMMON NORMALS: oropharynx normal Resp: AUSCULTATION: diminished lung sounds Cardio: COMMON NORMALS: regular rhythm, S1 normal heart sound present, S2 normal heart sound present and No murmurs present (Cardio) RHYTHM: regular rhythm HEART SOUNDS: S1 normal heart sound present and S2 normal heart sound present GI: COMMON NORMALS: Normal to inspection, nondistended, normoactive bowel sounds present, Soft to palpation and non-tender PALPATION: Yes Soft to palpation Extremity: COMMON NORMALS: no joint enlargement GENERAL: Yes edema (Trace) Neuro: COMMON NORMALS: patient oriented x3 and moves all extremities SENSORIUM/ORIENTATION: Yes alert Urinary Catheter Management: Wilburn Latex: Cath Placed During This Visit: yes, but has since been removed by the nurse Reason for Continuing Indwelling Catheter: Accurate Measurement of Urinary Output in Critically Ill Patients Urinary Catheter Date of Insertion: 11/16/22 Urinary Catheter Time of Insertion: 08:35 Date Urinary Catheter Removed: 11/17/22 Time Urinary Catheter Discontinued: 15:50 Discharge Data Studies Completed and Pending Completed Studies During Hospitalization Category Date Time Status CTA chest [CT angio chest PE protcl [id number]] Stat Cat Scan 11/16/22 00:32 Completed XR chest 1V portable [id number] Stat Exams 11/15/22 23:18 Completed CV. echo complete* [id number] Routine Ultrasound 11/16/22 02:54 Completed Pending at discharge Category Date Time Status Blood Culture Stat Lab 11/15/22 23:34 Results Radiology Impressions Chest X-Ray 11/15/22 23:18 IMPRESSION: 1. Emphysematous changes. 2. Trace bilateral pleural effusions. Chest CTA 11/16/22 00:32 IMPRESSION: 1. Lingular lobe pulmonary artery demonstrates decreased enhancement with contrast seen distally, series 11, image 201, finding may be artifactual in nature, a nonocclusive pulmonary embolus is also a consideration but felt less likely. Negative for right heart strain given on RV to LV ratio of approximately 0.9. 2. Small bilateral effusions. 3. Bilateral dependent atelectasis versus infiltrate. 4. Cardiomegaly. 5. Coronary artery atherosclerotic calcifications. 6. Emphysematous changes. 7. Bilateral dependent atelectasis versus infiltrate. COMMENTS: In the absence of a history or active diagnosis of lung cancer, it is recommended that this patient with emphysema be evaluated for enrollment in a low dose CT lung cancer screening program. Laboratory Results WBC 3.6 10^3/uL (4.0-10.0) L 11/17/22 03:57 RBC 4.37 10^6/uL (4.1-5.3) 11/17/22 03:57 Hgb 12.8 g/dL (11.5-15.3) 11/17/22 03:57 Hct 41.4 % (37.0-47.0) 11/17/22 03:57 MCV 94.7 fl (81-99) 11/17/22 03:57 MCH 29.3 pg (28.0-34.0) 11/17/22 03:57 MCHC 30.9 g/dL (30.0-36.0) 11/17/22 03:57 RDW 15.9 % (12.1-15.1) H 11/17/22 03:57 Plt Count 152 10^3/cmm (130-400) 11/17/22 03:57 MPV 9.9 fL (7.4-10.4) 11/17/22 03:57 Neut % (Auto) 82.6 % 11/17/22 03:57 Lymph % (Auto) 6.7 % 11/17/22 03:57 [place] % (Auto) 10.1 % 11/17/22 03:57 Eos % (Auto) 0.0 % 11/17/22 03:57 Baso % (Auto) 0.3 % 11/17/22 03:57 Neut # (Auto) 2.96 10^3/uL (1.8-7.7) 11/17/22 03:57 Lymph # (Auto) 0.2 10^3/uL (0.8-4.8) L 11/17/22 03:57 [place] # (Auto) 0.4 10^3/uL (0.2-0.9) 11/17/22 03:57 Eos # (Auto) 0.0 10^3/uL (0.0-0.8) 11/17/22 03:57 Baso # (Auto) 0.0 10^3/uL (0.0-0.1) 11/17/22 03:57 Nucleated RBC % (auto) 0 % 11/17/22 03:57 Nucleated RBCs # 0.0 /100WBC 11/17/22 03:57 D-Dimer 2.64 ug/mIFEU (0-0.59) H 11/15/22 23:15 Specimen Type Arterial 11/17/22 04:30 Sample Site Radial, right 11/17/22 04:30 ABG pH 7.33 (7.35-7.45) L 11/17/22 04:30 ABG pCO2 73.3 mmHg (35-45) H* 11/17/22 04:30 ABG pO2 90.4 mmHg (80.0-100.0) 11/17/22 04:30 ABG HCO3 38.2 mmol/L (22-26) H 11/17/22 04:30 ABG O2 Saturation 95.8 11/16/22 07:06 ABG Base Excess 9.3 mmol/L (-2.0-2.0) H 11/17/22 04:30 Pedro Test Pos 11/17/22 04:30 A-a O2 Gradient 12.2 mmHg (5-10) H 11/16/22 07:06 Hematocrit 40.9 % (37-47) 11/17/22 04:30 Hgb O2 Saturation 91.3 % (95-100) L 11/16/22 07:06 Carboxyhemoglobin 3.9 %THgb (0.4-20.1) 11/16/22 07:06 Methemoglobin 0.7 % (0.4-1.5) 11/16/22 07:06 Total Hemoglobin 14.4 g/dL (12-16) 11/16/22 07:06 Sodium 129.0 mmol/L (131-143) L 11/16/22 07:06 Potassium 5.3 mmol/L (3.5-5.0) H 11/16/22 07:06 Glucose 141.0 mg/dL (70-115) H 11/16/22 07:06 Ionized Calcium 1.3 mmol/L (1.1-1.4) 11/16/22 07:06 O2 Delivery Device Nc 11/17/22 04:30 O2 Liters/Min 10.0 % 11/17/22 04:30 FiO2 40.0 % 11/16/22 07:06 Tidal Volume 0.50 11/16/22 07:06 PEEP 10.0 cmH20 11/16/22 07:06 Fur Trimmer ID Quentin 11/17/22 04:30 Sodium 127 mmol/L (136-145) L 11/17/22 03:57 Potassium 5.2 mmol/L (3.5-5.1) H 11/17/22 03:57 Chloride 86 mmol/L (98-107) L 11/17/22 03:57 Carbon Dioxide 34 mmol/L (22-29) H 11/17/22 03:57 Anion Gap 12.2 (5-19) 11/17/22 03:57 BUN 17 mg/dL (8-23) 11/17/22 03:57 Creatinine 0.3 mg/dL (0.5-0.9) L 11/17/22 03:57 GFR Calculation Not Reportable 11/17/22 03:57 Glucose 172 mg/dL (65-115) H 11/17/22 03:57 POC Glucose 152 mg/dL (70-110) H 11/15/22 23:54 Calculated Osmolality 270 mOsm/kg (285-295) L 11/17/22 03:57 Lactic Acid 1.4 mmol/L (0.5-2.2) 11/15/22 23:34 Calcium 8.6 mg/dL (8.5-10.5) 11/17/22 03:57 Total Bilirubin 0.3 mg/dL (0.15-1.2) 11/17/22 03:57 AST 21 U/L (0-32) 11/17/22 03:57 ALT 31 U/L (0-33) 11/17/22 03:57 Alkaline Phosphatase 91 U/L (35-105) 11/17/22 03:57 Troponin T Baseline 17 ng/L (0-10) H 11/15/22 23:15 Troponin T 120 Minute 14.88 ng/L (0-10) H 11/16/22 01:47 Delta Troponin T -2.12 ABS# (0-10) L 11/16/22 01:47 Troponin T Hi Sens 6Hr 13.12 ng/L (0-10) H 11/16/22 05:00 Troponin T Hi Sens 6Hr Delta -3.88 ng/L (0-12) L 11/16/22 05:00 NT-Pro-B Natriuret Pep 3935 pg/mL (0-125) H 11/15/22 23:15 Total Protein 5.8 g/dL (6.6-8.7) L 11/17/22 03:57 Albumin 3.0 g/dL (3.5-5.2) L 11/17/22 03:57 Globulin 2.8 g/dL (1.3-4.6) 11/17/22 03:57 Procalcitonin 0.36 ng/mL (0-0.5) 11/16/22 01:47 Urine Color Yellow (Yellow) 11/16/22 06:28 Urine Appearance Clear (CLEAR) 11/16/22 06:28 Urine pH 5 (5-7) 11/16/22 06:28 Ur Specific [place] 1.020 (1.005-1.030) 11/16/22 06:28 Urine Protein 1+ (Negative) H 11/16/22 06:28 Urine Glucose (UA) Norm (Normal) 11/16/22 06:28 Urine Ketones Negative (Negative) 11/16/22 06:28 Urine Blood Neg (Negative) 11/16/22 06:28 Urine Nitrate Negative (Negative) 11/16/22 06:28 Urine Bilirubin Neg (Negative) 11/16/22 06:28 Urine Urobilinogen Norm mg/dL (Negative) 11/16/22 06:28 Ur Leukocyte Esterase Negative (Negative) 11/16/22 06:28 Nasal Influ A H1 2009 PCR Not detected (NOT DETECT) 11/15/22 23:50 Adenovirus (PCR) Not detected (NOT DETECT) 11/15/22 23:50 C. pneumoniae DNA (PCR) Not detected (NOT DETECT) 11/15/22 23:50 Coronavirus 229E (PCR) Not detected (NOT DETECT) 11/15/22 23:50 Human Metapneumovir PCR Not detected (NOT DETECT) 11/15/22 23:50 Influenza A (H1) PCR Not detected (NOT DETECT) 11/15/22 23:50 Influenza A (H3) PCR Not detected (NOT DETECT) 11/15/22 23:50 Influenza Type A (PCR) Not detected (NOT DETECT) 11/15/22 23:50 Influenza Type B (PCR) Not detected (NOT DETECT) 11/15/22 23:50 M. pneumoniae (PCR) Not detected (NOT DETECT) 11/15/22 23:50 Parainfluenza 1 (PCR) Not detected (NOT DETECT) 11/15/22 23:50 Parainfluenza 2 (PCR) Not detected (NOT DETECT) 11/15/22 23:50 Parainfluenza 3 (PCR) Not detected (NOT DETECT) 11/15/22 23:50 Parainfluenza 4 (PCR) Not detected (NOT DETECT) 11/15/22 23:50 RSV Type A (PCR) Not detected (NOT DETECT) 11/15/22 23:50 RSV Type B (PCR) Not detected (NOT DETECT) 11/15/22 23:50 Entero/Rhino (PCR) Not detected (NOT DETECT) 11/15/22 23:50 SARS-CoV-2 (PCR) Not detected (NOT DETECT) 11/15/22 23:50 Vitals Last Vital Signs Temp 98.3 F 11/17/22 08:00 Pulse 100 11/17/22 15:40 Resp 18 11/17/22 15:30 BP 139/87 11/17/22 16:00 Pulse Ox 90 11/17/22 15:30 O2 Del Method High Flow Nasal Cannula 11/17/22 15:30 O2 Flow Rate 8 11/17/22 15:30 FiO2 40 11/17/22 00:00 Discharge Plan Discharge Patient Disposition: Left Against Medical Advice Condition: Serious Prescriptions: New Spiriva Respimat 1.25 mcg/actuation mist 2 inh inhalation DAILY Qty: 4 0RF benzonatate 100 mg Capsule 100 mg PO TID PRN (Reason: Cough) Qty: 10 0RF levofloxacin 750 mg Tablet 750 mg PO DAILY Qty: 7 0RF apixaban 5 mg (74 tabs) tablets,dose pack See Rx Instructions .ROUTE .COMPLEX Qty: 74 0RF Rx Instructions: 10mg BID for 7 days then 5mg BID prednisone 20 mg tablet 20 mg PO DAILY 11 Days Qty: 20 0RF Rx Instructions: 3 tab daily for 3 days, then 2 tab for 3 days, then 1 tab for 3 days, then 1/2 tab for 4 days Continued diltiazem HCl 120 mg capsule,extended release 24hr 120 mg PO DAILY furosemide 20 mg tablet 20 mg PO DAILY PRN (Reason: Edema) Farxiga 10 mg tablet 10 mg PO DAILY Rx Instructions: NOT PICKED UP FROM [facility] RX FILLED 11/08/22 30D/S COPAY $99.00 Changed albuterol sulfate 90 mcg/actuation HFA aerosol inhaler 1 puff INHALATION Q4H Qty: 8.5 0RF Referrals: [facility] CHO[facility] [Other] (Bailey Torre primary care physican appointment scheduled: November at time of 10:00) Patient Instructions: Prednisone (By mouth), Levofloxacin (By mouth), Tiotropium (By breathing) (Spiriva, Spiriva Respimat), Apixaban (By mouth) (Eliquis), Against Medical Advice (DC), Acute Respiratory Failure (GEN) Activity Restrictions/Additional Instructions: Please seek continued diagnosis and treatment in a hospital as soon as possible for continued assessment and treatment of breathing failure, severe exacerbation of COPD, possible blood clot in your lung (pulmonary embolism). Subsequently also follow up with your primary doctor as soon as possible. You are leaving the hospital prematurely with respiratory failure (severe breathing disorder) with high likelihood of worsening of braething, getting very short of breath, stopping breathing, going into coma, developing brain damage, severe diability or possibly . You are prescribed medications as discussed, however, these are not an adequate substitute for the treatments you are receiving here, and you at the current time need support with high flow oxygen at minimum 10 liters flow and BiPAP non-invasive ventilator at night which you do not currently have at home. Please consider again staying and continuing treatment here and efforts to transfer you directly to a hospital in the area. Discharge Attestations Time Spent in Discharge Care*: greater than 30 min Quality Metrics Clinical Quality Measures [ No reported AMI, CVA or VTE this stay] Coding Level of Care Code 37838 Total time (in minutes) for Discharge: 65 Diagnoses Acute exacerbation of chronic obstructive airways disease J44.1 Respiratory failure with hypoxia and hypercapnia J96.91; J96.92 Pulmonary embolism I26.99
== END 2022-11-17 16:43 | disposition left against medical advice (07) | DRG 190 ==
LOC: ER 11-16 00:08 → ICU 11-16 00:31
PROVIDERS: Admitting Provider Student in an Organized Health Care Education/Training Program; Emergency Provider Emergency Medicine; PCP Family Medicine; Visit Provider Internal Medicine
DX: J44.1 Chronic obstructive pulmonary disease with (acute) exacerbation (principal); I26.99 Other pulmonary embolism without acute cor pulmonale; J96.21 Acute and chronic respiratory failure with hypoxia; J96.22 Acute and chronic respiratory failure with hypercapnia; E87.1 Hypo-osmolality and hyponatremia; E87.29 Other acidosis; Z99.81 Dependence on supplemental oxygen; E87.5 Hyperkalemia; Z66 Do not resuscitate
CPT/HCPCS: 36415; 36416; 36600; 51702; 71045; 71275; 80048; 80051; 80053; 81003; 82330; 82803; 82805; 82962; 83605; 83880; 84145; 84484; 85025; 85378; 87040; 87486; 87581; 87633; 93005; 93306; 94640; 94660; 96365; 96372; 96375; 96376; 99291; J1100; J1650; J1940; J3490; J7626; Q9967